=== PATIENT | female | born 1940 | race Caucasian/White ===

== ENCOUNTER 2024-06-30 04:14 | Day surgery (SDC) | payer OTHER ==
[2024-06-26 10:28] VITALS: BMI 21.0
[~2024-06-30 04:14] MED LIST: ACETAMINOPHEN 500 MG TABLET (FP) PO PRN
[2024-06-30] MEDS ORDERED: DEXAMETHASONE SOD PHOSPHATE 10 MG/1 ML VIAL ONE (07:11)
[2024-06-30] MEDS ORDERED: LIDOCAINE HCL/PF 1% SDV 5ML VIAL ONE (07:11)
[2024-06-30] MEDS: LIDOCAINE HCL 1% PRESERVATIVE FREE - 30ML VIAL IJ ONE ×2 (12:44)
[2024-06-30] MEDS: IOHEXOL 180 MG/1 ML ML IJ ONE ×2 (12:48)
[2024-06-30] MEDS: DEXAMETHASONE SOD PHOSPHATE 10 MG/1 ML VIAL IM ONE ×3 (12:53)
[2024-06-30 13:08] VITALS: RESP 16; TEMP 98.4
[2024-06-30 13:59] VITALS: BP 120/70; PULSE 80
== END 2024-06-30 14:11 | disposition home or self-care (01) ==
LOC: JASU-SURG 04:14
PROVIDERS: ATTEND Pain Medicine Pain Medicine
PROC: 3E0R3BZ Introduction of Anesthetic Agent into Spinal Canal, Percutaneous Approach (ICD-10-PCS; 2024-06-30)
PROC: 3E0R33Z Introduction of Anti-inflammatory into Spinal Canal, Percutaneous Approach (ICD-10-PCS; principal; 2024-06-30 09:00)
DX: M54.16 Radiculopathy, lumbar region (principal)
CPT/HCPCS: 76000-TC-FY; J1100

== ENCOUNTER 2025-03-15 06:25 | Day surgery (SDC) | payer OTHER ==
[2025-03-15] MEDS ORDERED: ACETAMINOPHEN 500 MG TABLET (FP) PO PRN (09:13)
[2025-03-15 11:08] VITALS: RESP 18
[2025-03-15] MEDS: LIDOCAINE HCL 1% PRESERVATIVE FREE - 30ML VIAL IJ ONE ×2 (12:40)
[2025-03-15] MEDS: IOHEXOL 180 MG/1 ML ML IJ ONE ×2 (12:41)
[2025-03-15] MEDS: DEXAMETHASONE SOD PHOSPHATE 10 MG/1 ML VIAL IM ONE ×2 (12:43)
[2025-03-15 13:20] VITALS: BP 144/65; PULSE 60; TEMP 97.5
== END 2025-03-15 14:35 | disposition home or self-care (01) ==
LOC: JASU-SURG 06:25
PROVIDERS: ATTEND Pain Medicine Pain Medicine
PROC: 3E0R3BZ Introduction of Anesthetic Agent into Spinal Canal, Percutaneous Approach (ICD-10-PCS; 2025-03-15)
PROC: 3E0R33Z Introduction of Anti-inflammatory into Spinal Canal, Percutaneous Approach (ICD-10-PCS; principal; 2025-03-15 12:15)
DX: M54.16 Radiculopathy, lumbar region (principal)
CPT/HCPCS: 76000-TC-FY; J1100